=== PATIENT | female | born 2000 | race American Indian/Alaskan Native ===

== ENCOUNTER 2019-05-18 08:21 | Observation (INO) | payer SELFPAY ==
[~2019-05-18] VITALS: Ht 154.9 cm; Wt 74.4 kg
[2019-05-19] MEDS ORDERED: PNV1TABL76 PO (06:11)
== END 2019-05-18 14:04 | disposition home or self-care (01) ==
LOC: 8 EST LDRP 08:21
PROVIDERS: ADMIT Obstetrics & Gynecology; ATTEND Obstetrics & Gynecology
DX: O62.9 Abnormality of forces of labor, unspecified (principal); O26.893 Other specified pregnancy related conditions, third trimester; R10.2 Pelvic and perineal pain; Z3A.37 37 weeks gestation of pregnancy
CPT/HCPCS: 76805; 76818; 99281; G0378

== ENCOUNTER 2019-05-19 03:24 | Inpatient (IN) | payer SELFPAY ==
[~2019-05-19] VITALS: Ht 154.9 cm; Wt 90.7 kg
[2019-05-19] MEDS ORDERED: LACTATED RINGERS 1,000 ML IV SCH (03:50)
[2019-05-19] MEDS ORDERED: BUTORPHANOL TARTRATE 2 MG/ML VIAL IV PRN (05:15)
[2019-05-19] MEDS: LACTATED RINGERS 1,000 ML IV SCH ×5 (05:45→22:52)
[2019-05-19] MEDS ORDERED: PENICILLIN G POTASSIUM 5 MMU in DEXT 5% WATER 100 ML IV SCH (06:00)
[2019-05-19 06:04] LABS: BASOPHILS % 0.3 % (0.0-2.0); EOSINOPHILS % 0.8 % (0.0-5.0); HEMATOCRIT. 33.2 % (36.0-48.0); HEMOGLOBIN. 10.8 g/dL (12.0-16.0); LYMPHOCYTES % 27.6 % (20.0-50.0); MEAN CORPUSCULAR VOLUME 79.7 fL (81.0-99.0); MEAN PLATELET VOLUME 9.1 fl (7.4-10.4); MONOCYTES % 9.3 % (2.0-8.0); PLATELET 212 x1000/uL (130-400); RED BLOOD CELL COUNT 4.16 mill/uL (4.2-5.4); RED CELL DISTRIBUTION WIDTH 15.4 % (11.6-14.6)
[2019-05-19 06:07] LABS: INR 0.9; PARTIAL THROMBOPLASTIN TIME 28.8 sec (23.4-31.0); PROTHROMBIN TIME 9.4 sec (9.6-11.0)
[2019-05-19] MEDS ORDERED: PNV1TABL76 PO (06:11)
[2019-05-19] MEDS ORDERED: ROPIVACAINE HCL/PF EPIDURAL 200 ML EPI SCH ×2 (07:00→07:15)
[2019-05-19] MEDS ORDERED: DIPHENHYDRAMINE 50MG/ML VIAL IV PRN (07:15)
[2019-05-19] MEDS ORDERED: METOCLOPRAMIDE HCL 10MG/2ML VIAL IV PRN (07:15)
[2019-05-19] MEDS ORDERED: DIPHENHYDRAMINE 50MG/ML VIAL IM PRN (07:15)
[2019-05-19] MEDS ORDERED: ONDANSETRON HCL 4MG/2ML INJ IV PRN (07:15)
[2019-05-19 10:11] LABS: CLARITY URINE CLEAR (CLEAR); COLOR URINE YELLOW (YELLOW); KETONES URINE NEGATIVE (NEGATIVE); LEUKOCYTE ESTERASE URINE TRACE (NEGATIVE); NITRITE URINE NEGATIVE (NEGATIVE); OCCULT BLOOD URINE 2+ (NEGATIVE); PH URINE 6.5 (4.5-8.0); PROTEIN URINE NEGATIVE (NEGATIVE); SPECIFIC GRAVITY URINE 1.012 (1.005-1.030); UROBILINOGEN URINE 0.2 E.U./dL (0.2-1.0)
[2019-05-19 10:34] LABS: *AMPHETAMINES SCREEN URINE NEGATIVE (NEGATIVE); *BARBITURATES SCREEN URINE NEGATIVE (NEGATIVE); *BENZODIAZEPINES SCREEN URINE NEGATIVE (NEGATIVE)
[2019-05-19 10:35] LABS: *COCAINE SCREEN URINE NEGATIVE (NEGATIVE); CANNABINOID URINE SCREEN NEGATIVE (NEGATIVE); METHADONE URINE SCREEN NEGATIVE (NEGATIVE); OPIATES URINE SCREEN NEGATIVE (NEGATIVE); PHENCYCLIDINE URINE SCREEN NEGATIVE (NEGATIVE)
[2019-05-19] MEDS: PENICILLIN G POTASSIUM 2.5 MMU in DEXTROSE 5% WATER 50 ML IV SCH ×4 (10:40→22:53)
[2019-05-19 11:00] LABS: HEPATITIS B SURFACE ANTIGEN NEGATIVE
[2019-05-19] MEDS: ACETAMINOPHEN 325MG TABLET PO NR ×2 (19:43→19:59)
[2019-05-19] MEDS ORDERED: ACETAMINOPHEN 325MG TABLET PO NR (20:00)
[2019-05-19] MEDS ORDERED: DEXT 5%/LR + PITOCIN 20UNITS/L 1,000 ML IV SCH (20:45)
[2019-05-19] MEDS ORDERED: CARBOPROST TROMETHAMINE 250 MCG/ML AMPUL IM PRN (20:45)
[2019-05-19] MEDS ORDERED: NALOXONE HCL 0.4 MG/ML 1ML VIAL IM PRN (20:45)
[2019-05-19] MEDS ORDERED: METHYLERGONOVINE MALEATE 0.2 MG/ML IM PRN (20:45)
[2019-05-19] MEDS ORDERED: LIDOCAINE HCL 1% 20ML VIAL (Pyxis) INJ INFIL SCH (20:45)
[2019-05-20] MEDS ORDERED: MORPHINE SULFATE/PF 1MG/ML 10ML AMP ONE (02:57)
[2019-05-20] MEDS ORDERED: DEXT 5%/LR + PITOCIN 20UNITS/L 1,000 ML IV SCH (03:14)
[2019-05-20] MEDS ORDERED: BISACODYL 10MG SUPP PR PRN (03:15)
[2019-05-20] MEDS ORDERED: LANOLIN OINT 7GM TUBE TOP PRN (03:15)
[2019-05-20] MEDS ORDERED: HEMORRHOIDAL SUPP PR PRN (03:15)
[2019-05-20] MEDS ORDERED: ONDANSETRON HCL 4MG/2ML INJ IV PRN (03:15)
[2019-05-20] MEDS ORDERED: DIPHENHYDRAMINE 25MG CAPSULE PO PRN (03:15)
[2019-05-20] MEDS ORDERED: HYDROCODONE/ACETAMINOPHEN 5/325MG TABLET PO PRN (03:15)
[2019-05-20 08:15] VITALS: BP 113/66
[2019-05-20 12:45] VITALS: BP 108/51
[2019-05-20] MEDS: ACETAMINOPHEN WITH CODEINE 300/30MG TABLET PO PRN ×2 (16:10→21:06)
[2019-05-20 19:20] VITALS: BP 116/63
[2019-05-20] MEDS: SIMETHICONE 80MG TABLET CHEW PO SCH (21:05)
[2019-05-20] MEDS: MAGNESIUM/ALUMINUM HYDROXIDE/SIMETHICONE 30ML UDC PO SCH (21:05)
[2019-05-20] MEDS: DOCUSATE SODIUM 100MG CAPSULE PO SCH (21:05)
[2019-05-21 00:01] VITALS: BP 110/66
[2019-05-21 04:00] VITALS: BP 115/75
[2019-05-21 06:55] LABS: BASOPHILS % 0.2 % (0.0-2.0); EOSINOPHILS % 0.3 % (0.0-5.0); HEMATOCRIT. 28.8 % (36.0-48.0); HEMOGLOBIN. 9.4 g/dL (12.0-16.0); LYMPHOCYTES % 15.8 % (20.0-50.0); MEAN PLATELET VOLUME 8.6 fl (7.4-10.4); MONOCYTES % 7.5 % (2.0-8.0); NEUTROPHILS % 76.2 % (40.0-76.0); PLATELET 166 x1000/uL (130-400); RED BLOOD CELL COUNT 3.61 mill/uL (4.2-5.4); RED CELL DISTRIBUTION WIDTH 15.9 % (11.6-14.6)
[2019-05-21 08:00] VITALS: BP 116/68
[2019-05-21] MEDS: MAGNESIUM/ALUMINUM HYDROXIDE/SIMETHICONE 30ML UDC PO SCH ×4 (08:21→21:10)
[2019-05-21] MEDS: SIMETHICONE 80MG TABLET CHEW PO SCH ×3 (08:21→21:10)
[2019-05-21] MEDS: IBUPROFEN 400MG TABLET PO PRN ×2 (08:21→21:10)
[2019-05-21 16:10] VITALS: BP 91/53
[2019-05-21] MEDS: ACETAMINOPHEN WITH CODEINE 300/30MG TABLET PO PRN (18:02)
[2019-05-21 19:25] VITALS: BP 124/76
[2019-05-21] MEDS: DOCUSATE SODIUM 100MG CAPSULE PO SCH (21:10)
[2019-05-22] VITALS: BP 107/65
[2019-05-22 04:00] VITALS: BP 115/68
[2019-05-22 08:00] VITALS: BP 121/80
[2019-05-22] MEDS: MAGNESIUM/ALUMINUM HYDROXIDE/SIMETHICONE 30ML UDC PO SCH ×2 (08:34→20:57)
[2019-05-22] MEDS: SIMETHICONE 80MG TABLET CHEW PO SCH ×2 (08:34→20:56)
[2019-05-22] MEDS: IBUPROFEN 400MG TABLET PO PRN ×2 (08:35→21:06)
[2019-05-22] MEDS ORDERED: TETANUS, DIPHTHERIA, PERTUSSIS VAC/PF 0.5ML (>7YR OLD) IM ONE (09:00)
[2019-05-22] MEDS ORDERED: INFLUENZA VIRUS VACCINE(AFLURIA) 0.5ML SYR IM ONE (09:00)
[2019-05-22 16:00] VITALS: BP 123/76
[2019-05-22 19:55] VITALS: BP 121/78
[2019-05-22] MEDS: DOCUSATE SODIUM 100MG CAPSULE PO SCH (20:56)
[2019-05-23 03:55] VITALS: BP 110/79
[2019-05-23] MEDS ORDERED: FERR325T6 MT (06:30)
[2019-05-23] MEDS ORDERED: IBUP-2028 PO (06:30)
[2019-05-23 08:23] VITALS: BP 118/74
[2019-05-23] MEDS: MAGNESIUM/ALUMINUM HYDROXIDE/SIMETHICONE 30ML UDC PO SCH (09:15)
[2019-05-23] MEDS: IBUPROFEN 400MG TABLET PO PRN (09:15)
[2019-05-23] MEDS: SIMETHICONE 80MG TABLET CHEW PO SCH (09:16)
== END 2019-05-23 12:00 | disposition home or self-care (01) | DRG 540 ==
LOC: 8 EST LDRP 03:24 → OBSVTOIN 03:24 → 8 EST LDRP 08:36 → 8EST 05-20 06:04
PROVIDERS: ADMIT Obstetrics & Gynecology; ATTEND Obstetrics & Gynecology
PROC: 10D00Z1 Extraction of Products of Conception, Low, Open Approach (ICD-10-PCS; principal; 2019-05-20)
DX: O32.4XX0 Maternal care for high head at term, not applicable or unspecified (principal); D62 Acute posthemorrhagic anemia; O36.63X0 Maternal care for excessive fetal growth, third trimester, not applicable or unspecified; O99.03 Anemia complicating the puerperium; O90.89 Other complications of the puerperium, not elsewhere classified; R33.9 Retention of urine, unspecified; Z37.0 Single live birth; Z3A.37 37 weeks gestation of pregnancy
CPT/HCPCS: 36415; 80305; 81003; 85025; 86592; 86703; 86762; 86850; 86900; 87340; 88307; 90686; 90715; 99281; G0378; J2274; J2540; J2590; J2795; J3490; J7060; J7120; A4315